=== PATIENT | female | born 1990 | race Caucasian/White ===

== ENCOUNTER 2018-05-21 16:40 | Emergency (ER) | payer OTHER ==
[~2018-05-21] VITALS: Ht 160 cm; Wt 57.6 kg
[2018-05-21] MEDS ORDERED: PRENATAL VITAM1 EAC6 PO (16:52)
== END 2018-05-21 17:00 | disposition home or self-care (01) ==
LOC: ED 16:40
DX: O99.713 Diseases of the skin and subcutaneous tissue complicating pregnancy, third trimester (principal); L29.8 Other pruritus; Z3A.31 31 weeks gestation of pregnancy

== ENCOUNTER 2018-07-18 23:11 | Inpatient (IN) | payer OTHER ==
[~2018-07-18 23:11] MED LIST: PRENATAL VITAM1 EAC6 PO
[2018-07-18] MEDS ORDERED: TYLENOL EXTRA500 MG PO (23:43)
--- NOTE | 2018-07-19 13:21 | PR ---
[facility] [address] [facility] [place] [address] Signed PP Progress Notes Datetime Report Generated by N: 07/19/2018 13:21 SUBJECTIVE: [id number] Pain: Within normal limits Nausea/Vomiting: Denies Vital Signs: [id number] Vital Signs: Reviewed; Within Normal Limits EXAM: [id number] Abdomen/Uterus: Normal Lochia: Normal Extremities: Normal IMPRESSION/PLAN/PROCEDURES: [id number] Impression: Normal progression Plan: Continue present management Procedures: None Progress Notes: Doing well, without complaint Signing Physician: Param Boswell MD Copies: ~ *Electronically Signed* 07/19/18 1321 PARAM BOSWELL MD PATIENT NAME: ADARSH MAZARIEGOS PROGRESS NOTE DATE OF : [birth year] PHYSICIAN: PARAM BOSWELL MD RPT #: [id number] REPORT IS CONFIDENTIAL AND NOT TO BE RELEASED WITHOUT AUTHORIZATION
--- NOTE | 2018-07-20 07:20 | PR ---
[facility] [address] [facility] [place], [place] [address] Signed PP Progress Notes Datetime Report Generated by CPN: 07/20/2018 07:19 SUBJECTIVE: [id number] Pain: Within normal limits Nausea/Vomiting: Denies Flatus: Yes Bowel Movement: Yes Vital Signs: [id number] Vital Signs: Reviewed; Within Normal Limits EXAM: [id number] Cardiovascular: Normal Respiratory: Normal Abdomen/Uterus: Normal Lochia: Normal Vulva/Perineum: Not Done Breasts: Not Done CVA Tenderness: Normal Extremities: Normal Incision: Not Applicable Progress: Normal Exam Comments: Fundus firm U-2 nontender IMPRESSION/PLAN/PROCEDURES: [id number] Impression: Normal progression Plan: Discharge Procedures: None Progress Notes: Pt seen and examined. Doing well. Ambulating, voiding, and tolerating full diet. Pain and lochia minimal. Reports well. No fevers/chills/other complaints. Desires d/c home today. Planning vasectomy for pp contraception Signing Physician: Angela Smith DO Copies: ~ *Electronically Signed* 07/20/18 0719 ANGELA SMITH DO PATIENT NAME: ADARSH MAZARIEGOS PROGRESS NOTE DATE OF : [birth year] PHYSICIAN: ANGELA SMITH DO RPT #: [id number] REPORT IS CONFIDENTIAL AND NOT TO BE RELEASED WITHOUT AUTHORIZATION
== END 2018-07-20 11:55 | disposition home or self-care (01) | DRG 807 ==
LOC: FBCO 23:11 → FBC 23:25
PROVIDERS: ADMIT General Practice
PROC: 10E0XZZ Delivery of Products of Conception, External Approach (ICD-10-PCS; principal; 2018-07-19)
PROC: 0HQ9XZZ Repair Perineum Skin, External Approach (ICD-10-PCS; 2018-07-19)
PROC: 0UQMXZZ Repair Vulva, External Approach (ICD-10-PCS; 2018-07-19)
PROC: 00HU33Z Insertion of Infusion Device into Spinal Canal, Percutaneous Approach (ICD-10-PCS; 2018-07-19)
PROC: 3E0R3BZ Introduction of Anesthetic Agent into Spinal Canal, Percutaneous Approach (ICD-10-PCS; 2018-07-19)
DX: O36.5930 Maternal care for other known or suspected poor fetal growth, third trimester, not applicable or unspecified (principal); Z37.0 Single live birth; Z3A.39 39 weeks gestation of pregnancy; O69.81X0 Labor and delivery complicated by cord around neck, without compression, not applicable or unspecified; O70.0 First degree perineal laceration during delivery
CPT/HCPCS: 01960; 36415; 83030; 85027; 86850; 86870; 86900; 86901; J2590; J2790; J7120

== ENCOUNTER 2019-12-28 01:52 | Day surgery (SDC) | payer OTHER ==
[~2019-12-28] VITALS: Ht 160 cm; Wt 54.4 kg
--- NOTE | ~2019-12-28 | OR ---
[address] [address] [place] DATE OF OPERATION: 12/28/2019 SURGEON: Angela Smith DO PREOPERATIVE DIAGNOSES: 1. Abnormal uterine bleeding. 2. Hemodynamic instability. POSTOPERATIVE DIAGNOSES: 1. Abnormal uterine bleeding. 2. Hemodynamic instability. 3. Omental adhesions. PROCEDURES PERFORMED: 1. Hysteroscopy. 2. Dilation and curettage. 3. Total laparoscopic hysterectomy. 4. Bilateral salpingectomy. 5. Cystoscopy. 6. Lysis of minimal omental adhesions. ASSISTANTS: 1. Ruthie Mackenzie DO. 2. Gabe Khan MD. ANESTHESIA: General. ESTIMATED BLOOD LOSS: 250 mL. SPECIMEN: 1. Endometrial curettings. 2. Uterus and cervix. 3. Bilateral fallopian tubes. FINDINGS: Normal external genitalia with normal clitoris, urethral meatus, bilateral [place]iver[place]'s, and Bartholin's. The pelvic exam under anesthesia demonstrates continued heavy bleeding with approximately 200 mL of blood and clot expressed at the beginning of the procedure. PATIENT NAME: ADARSH DE LOS SANTOS OPERATIVE REPORT DATE OF : 89 REPORT #: [id number] PHYSICIAN: ANGELA SMITH DO PCP: RANDALL LOYA REPORT IS CONFIDENTIAL AND NOT TO BE RELEASED WITHOUT AUTHORIZATION [address] [address] [place] Cervix was patulous, but otherwise normal. Hysteroscopy demonstrates thin endometrium with no obvious masses, perforations or other abnormalities. Curettage was performed and hysteroscopy repeated with continued vaginal/uterine hemorrhage noted. Decision was made at this point to proceed with hysterectomy as previously planned. On laparoscopy, omental adhesions to the anterior abdominal wall with normal uterus, fallopian tubes, and ovaries. On cystoscopy, normal bladder with bilateral ureteral jets. COMPLICATIONS: None. INDICATIONS: Ms. De Los Santos is a pleasant 29-year-old white female, well known to me, who presented to the emergency department late last night complaining of heavy vaginal bleeding. She had hysteroscopy, D and C performed in the office one week prior for abnormal uterine bleeding. No significant uterine pathology was noted on hysteroscopy and endometrium was benign proliferative. The patient was transitioned to a new oral contraceptive pill. Bleeding became very heavy and she came to the emergency department. Conservative treatment with tranexamic acid failed and the patient became hemodynamically unstable with continued heavy bleeding and tachycardia. The patient was consented for hysteroscopy, D and C. She requested proceeding directly to hysterectomy as she has completed her childbearing and is frustrated with continued bleeding. We did discuss the possibility of proceeding with hysterectomy should hysteroscopy D and C be unable to control bleeding. The patient understands and agrees. TECHNIQUE: The patient was taken to the operating room where a time-out was performed to confirm correct patient and correct procedure. General anesthesia was adequately established. The patient was prepped and draped in dorsal lithotomy position with her feet in Yellofin stirrups. ICPs were on and running and no preoperative antibiotics or heparin were indicated. Exam under anesthesia was performed that demonstrated large amount of clot in the vagina and the uterus and ongoing bleeding. She is quite tachycardic at the beginning of the case. A weighted speculum was placed in the vagina and the anterior lip of the cervix was grasped with an Allis clamp. The cervix was noted to be patulous. No dilation was required. An operative hysteroscope was placed in the cervical os and advanced under direct visualization into the uterine cavity. Normal cervix and endometrial cavity with bilateral tubal ostia identified. No intrauterine lesions or masses noted. However, significant uterine bleeding was noted on hysteroscopy. The hysteroscope was withdrawn and circumferential curettage was performed with a sharp curette yielding scant amount of endometrial curettings. Bimanual pressure was held for several minutes. Hysteroscope was then reinserted into the uterus and continued heavy vaginal bleeding was noted. Decision was made at this point to proceed with total laparoscopic hysterectomy with bilateral salpingectomy as previously discussed. The PATIENT NAME: ADARSH DE LOS SANTOS [facility] OPERATIVE REPORT DATE OF : [birth year] REPORT #: [id number] PHYSICIAN: ANGELA SMITH DO PCP: RANDALL LOYA REPORT IS CONFIDENTIAL AND NOT TO BE RELEASED WITHOUT AUTHORIZATION [address] [address] [place] patient was undraped and redraped and given 2 g of Ancef per SCIP protocol. Once the patient was prepped and draped in the dorsal lithotomy position with feet in the Yellofin stirrups, a weighted speculum was placed in the vagina and the anterior lip of the cervix was grasped with an Allis clamp. A Gyros uterine manipulator was gently placed at the fundus and green cup was placed around the cervix at the vaginal apex. A Miller catheter was inserted and attention was turned to the base of the umbilicus. Just inferior to the umbilicus was infiltrated with 0.25% Marcaine with epinephrine. The skin was incised and fascia grasped with hemostats and elevated and incised with Metzenbaum scissors. Stay sutures were placed and the peritoneum was entered bluntly. A Antonio trocar was then placed under direct visualization without difficulty and pneumoperitoneum was established. Survey of the abdomen and pelvis was performed and an omental adhesion was noted just superior to the umbilicus. A 5 mm assist port was placed in the left lower quadrant under direct visualization without complication. An 8 mm expanding port was then placed in the right lower quadrant under direct visualization without complication. Attention was turned to the omental adhesion. It was fulgurated and divided at the anterior abdominal wall with LigaSure device with excellent hemostasis. Attention was then turned to the pelvis. Normal tubes and ovaries and uterus were noted with a small amount of serosanguineous hysteroscopic fluid in the pelvis. The left fallopian tube was grasped, elevated, and dissected along the mesosalpinx and amputated the cornu. The fallopian tube was sent to pathology for further evaluation. The process was repeated on the right, where the tube was grasped, elevated and dissected along the mesosalpinx and amputated the cornu. The right uteroovarian ligament was then fulgurated and divided with excellent hemostasis. The left uteroovarian ligament was fulgurated and divided with excellent hemostasis. The left round ligament was fulgurated, divided and the anterior leaves of the broad ligament were dissected. The anterior leaf was brought down to the vaginal cuff and the bladder was pushed well below the vaginal cuff. The posterior leaf of the broad ligament was easily divided down to the uterosacral ligament and across the posterior edge of the cervical cup. The uterine vessels were identified, fulgurated and divided with excellent hemostasis. The process was repeated on the right with fulguration and dissection of the round ligament, anterior and posterior leaves of the broad ligament and uterine vessels with excellent hemostasis. Colpotomy was then performed using Sonicision device starting at 6 o'clock and proceeding along the edge of the green cup. The cervix was then amputated from the top of the vagina and the cervix and uterus were delivered through the vagina without difficulty. The vagina was then packed with a wet lap inside of a glove to maintain pneumoperitoneum. The pelvis was irrigated and found to be hemostatic. Colpotomy was then closed using V-Loc suture with an Endostitch device. Careful attention was made to incorporate the uterosacral ligaments bilaterally and vaginal epithelium with each bite. Excellent hemostasis and vaginal support were appreciated at this point of the procedure. Pneumoperitoneum was reduced and again excellent hemostasis was noted. Trocars were removed. The umbilical fascia was repaired using 0 Vicryl in a running nonlocked manner. Skin was then reapproximated PATIENT NAME: ADARSH DE LOS SANTOS [facility] OPERATIVE REPORT DATE OF : [birth year] REPORT #: [id number] PHYSICIAN: ANGELA SMITH DO PCP: RANDALL LOYA REPORT IS CONFIDENTIAL AND NOT TO BE RELEASED WITHOUT AUTHORIZATION [address] [address] [place] using 4-0 Monocryl in a subcuticular stitch with excellent hemostasis and cosmesis. Attention was then turned to cystoscopy. The Miller catheter was removed and a 70 degree cystoscope was placed in the urethral meatus and advanced under direct visualization into the bladder. Normal bladder dome and bilateral ureteral jets were noted. The bladder was drained. Miller catheter was reinserted. The patient was taken to the PACU in good and stable condition after removal of the vaginal lap. Sponge, needle, and instrument count was correct x2 at the end of the procedure. Dr. Khan and Dr. Mackenzie were present and participated in all portions of the procedure. Of note, after completion of the hysteroscopy, the patient's was called and informed of the need for hysteroscopy. Kvng De Los Santos was very supportive of this decision and appreciated the care his received. Angela Smith DO JDW/MODL /[id number] Copies: ~ PATIENT NAME: ADARSH DE LOS SANTOS OPERATIVE REPORT DATE OF : [birth year] REPORT #: [id number] PHYSICIAN: ANGELA SMITH DO PCP: RANDALL LOYA REPORT IS CONFIDENTIAL AND NOT TO BE RELEASED WITHOUT AUTHORIZATION
[~2019-12-28 01:52] MED LIST changes: +TYLENOL EXTRA500 MG PO
--- OUTSIDE RECORDS SUMMARY | 2019-12-28 01:54 | XMS ---
PreManage Notification: ADARSH MAZARIEGOS Security Manager Event Events No recent Security Events currently on file CRITERIA MET - [facility] PROVIDERS There are no care providers on record at this time. Fidel has no Care Guidelines for this patient. Antonio VISIT COUNT (12 MO.) 1 CHRISTIE Thomas TOTAL 1 NOTE: Visits indicate total known visits. ED/C VISIT TRACKING (12 MO.) 12/28/2019 01:52 CHRISTIE Hudson [place] TYPE: Emergency COMPLAINT: - POST OP PROBLEM INPATIENT VISIT TRACKING (12 MO.) No inpatient visits to display in this time frame [email or web address]
--- NOTE | 2019-12-28 10:25 | NUR ---
12/28/19 1025 Smith,Shraddha Vazquez 1015: IV IN LEFT AC RUNNING SLOW ON ARRIVAL. FLUSHED WITH NORMAL SALINE. NOW WNL.
--- NOTE | 2019-12-28 10:54 | NUR ---
WAS NOTIFIED BY ED RN BETO OF PTS' REQUEST FOR SPIRITUAL CARE. ARRIVED, PT VERY RECEPTIVE TO MY PRESENCE. SCARED AND SOMEWHAT CONCERNED ABOUT HER HEALTH. PT IS PLEASED WITH CARE AND FEELS SHE MADE THE RIGHT DECISION COMING IN. KNOWS SHE NEEDS TO WAIT FOR LABS FOR FURTHER STEPS TAKEN TODAY. EXPRESSED CONCERN FOR HER FAMILY. RECENTLY MOVED HERE FROM [place], BELIEVES GOD BROUGHT HER AND HER FAMILY HERE. HAS EXPERIENCED FAIR AMOUNT OF LOSS RECENTLY TO FRIENDS AND LOVED ONES. GAVE COMFORT AND ENCOURAGEMENT, PT REQUESTED PRAYER AND ASKED FOR RN ASSISTANCE FROM BLEEDING. HAD STAFF COME IN TO CARE FOR PT, WILL FOLLOW NEEDED
--- NOTE | 2019-12-28 11:40 | NUR ---
PT ARRIVES PER STRETCHER FROM PACU TO FBC 103. PT DROWSY. DECLINES TO ATTEMPT TO SELF TRANSFER. FULL TRANSFER TO BED BY THIS RN AND FENG RN. REPORT RECEIVED FROM FENG RN. ASSESSMENT COMPLETE. VSS. ABD SCOPE SITE x 3 WITH BANDAIDS CDI. VERY SCANT AMOUNT OF REDDISH BROWN VAG DRAINAGE NOTED ON PERIPAD. 18 GAUGE IV LEFT AC INTACT AND BENIGN. INFUSES LR AT 125/HR ORDERED. SCD'S ON AND FUNCTIONING. PT DROWSY BUT AWAKENS TO SOUND AND RESPONDS APPROPRIATELY. ORIENTED X 3. RATES LOP 5/10 BUT APPEARS TO REST COMFORTABLY WITH REG RESPS OBSERVED (SEE PACU NOTES FOR PAIN MEDICATION ADMINISTRATION PRIOR TO ARRIVING ON FBC). POC DISCUSSED WITH PT. PT AGREEABLE. PT DENIES NAUSEA CURRENTLY. ICE CHIPS PROVIDED.
--- NOTE | 2019-12-28 11:40 | NUR ---
18 GAUGE IV LEFT AC INTACT AND BENIGN. FLUSHES EASILY.
--- NOTE | 2019-12-28 12:00 | NUR ---
DR. FENG HERE ON FBC FLOOR. REPORT TO DR. FENG. DR. FENG IN TO PT BEDSIDE.
--- NOTE | 2019-12-28 12:30 | NUR ---
18 GAUGE IV LEFT AC REMAINS INTACT AND BENIGN.
--- NOTE | 2019-12-28 12:30 | NUR ---
VSS. PT AWAKENS TO SOUND. RESPONDS APPROPRIATELY TO REQUESTS. VAG DRAINAGE REMAINS SCANT TO NONE. AMAYA CATH CONTIN TO DRAIN BRIGHT YELLOW URINE. REMAINS INTACT AND BENIGN. ICE WATER PROVIDED. PT REMAINS DROWSY.
--- NOTE | 2019-12-28 12:38 | NUR ---
18 GAUGE L AC INTACT AND BENIGN. FLUSHES EASILY.
--- NOTE | 2019-12-28 13:10 | NUR ---
LR 1 LITER HUNG AT 125 ML/HR ORDERED (SEE EMAR). 18 GAUGE LEFT AC REMAINS INTACT AND BENIGN. CONTIN TO INFUSE EASILY.
--- NOTE | 2019-12-28 13:30 | NUR ---
VSS. PT SEEMS MORE AWAKE. ASKS APPROPRIATE QUESTIONS REGARDING POC. QUESTIONS ANSWERED. PT AGREEABLE AND VERBALIZES UNDERSTANDING. PT CONTINUES TO DENY NAUSEA. JELLO AND SALTINE CRACKERS PROVIDED PER PT REQUEST.
--- NOTE | 2019-12-28 13:31 | NUR ---
PT NOTED TO BE TACHY WITH ACTIVITY. PULSE FORMERLY 84 WHILE PT IS AT REST, THEN UP TO 120'S WHEN PT READJUSTS HERSELF IN THE BED. VERIFIED MANUALLY BY RADIAL PULSE. PULSE BACK TO WNL WHEN PT RESTS.
--- NOTE | 2019-12-28 14:05 | NUR ---
LAB HERE FOR SCHEDULED BLOOD DRAW.
--- NOTE | 2019-12-28 14:30 | NUR ---
VSS. PT AAO X 3. TOLERATES JELLO, SALTINE CRACKERS AND SIPS OF WATER WITHOUT NAUSEA. REQUESTS PAIN MEDICATION FOR ABD PAIN 11/17. MOTRIN 800 MG AND 2 NORCO GIVEN PO (SEE EMAR). PT AWAKE AND ALERT. CALLS MOTHER ON PHONE. AMAYA CATH EMPTIED OF 850 ML BRIGHT YELLOW URINE. PT DENIES FURTHER NEEDS.
--- NOTE | 2019-12-28 14:30 | NUR ---
IN TO CHECK ON PT IN FBC RM 103. PT IS STILL GROGGY, TRYING TO EAT JELLO AND FADES IN AND OUT. GAVE BLESSING IV ALARM WENT OFF. NOTIFIED DANAY RODRIGUEZ. WILL CONTINUE TO FOLLOW
--- NOTE | 2019-12-28 15:00 | NUR ---
AWAKE AND AKERT. CONTIN TO TOLERATE PO INTAKE WITHOUT COMPLAINTS OF NAUSEA. DENIES NEEDS AT THIS TIME.
--- NOTE | 2019-12-28 16:05 | NUR ---
DR. FENG HERE AT [facility]. REPORT TO DR. FENG REGARDING PT STATUS, VITAL SIGNS, LAB RESULTS, SENIOR SOFTWARE DEVELOPER, POC, I'S & O'S. DR. FENG VIEWS LABS. DR. FENG IN TO PT BEDSIDE.
--- NOTE | 2019-12-28 16:45 | NUR ---
PULSE NOTED. OTHER VSS. SCANT AMT OF VAGINAL DISCHARGE NOTED ON PERIPAD. PT AWAKE AND ALERT. RATES LOP DECREASED TO 4/10.
--- NOTE | 2019-12-28 18:30 | NUR ---
PT EATS SMALL AMOUNT OF SOUP AND TOAST. DENIES NEEDS AT THIS TIME. DESIRES TO REST.
--- NOTE | 2019-12-28 22:12 | NUR ---
pm assessment and POC for night discussed with pt. Pt asking for pain Rx for 09/17 incision site disc. Rx'd with 2 [place] after pt eats jello and some crackers.
--- NOTE | 2019-12-28 22:18 | NUR ---
2140- Pt medicated with scheduled Motrin 800mg, rates disc 06/17. Pt gets up to bedside with nurse and stands in place. Tolerates the activitiy well and returns to bed.
--- NOTE | 2019-12-28 23:49 | NUR ---
2348-pt resting, eyes closed. Opens eyes to nurse voice at bedside. vitals obtained. Pt closes eyes and continues to rest.
--- NOTE | 2019-12-29 01:18 | NUR ---
0010- Pt calls nurse to room with c/o bladder feeling full. Catheter manipulated and drains pale yellow urine. Pt requesting Rx for discomfort. Medicated with 2 [place] by Fernando JON
--- NOTE | 2019-12-29 01:19 | NUR ---
0100-pt calls nurse to room and states she feels her bladder is still full. Miller manipulated and drains 250cc pale yellow urine. Miller catheter Dc'd, tip intact. Pt advised to call nurse with urge to go to BR. Ruiz box given at pt request to eat.
--- NOTE | 2019-12-29 04:46 | NUR ---
0435-pt up to BR for first void. Becomes nauseous upon returning to bed. Rx with zofran 4mg IV. Pt sits up and watches t.v
--- NOTE | 2019-12-29 06:14 | NUR ---
0600- pt awake and on her phone. Scheduled motrin 800mg given. Pt rates disc 09/17 at this time. Menu given to pt and how to order breakfast explained
--- NOTE | 2019-12-29 09:00 | NUR ---
ASSESSMENT COMPLETED, ASSISTED PT UP TO BR, REG BREAKFAST ORDERED
--- NOTE | 2019-12-29 09:06 | NUR ---
SL LEFT ARM, NO S/S OF INFECTION
--- NOTE | 2019-12-29 09:13 | NUR ---
NORCO GIVEN FOR PAIN CONTROL
--- NOTE | 2019-12-29 10:55 | NUR ---
SL DC'D, CATHETER TIP INTACT, BANDAID APPLIED, DISCHARGE INSTRUCTIONS GIVNE, RX GIVEN, PT VOICED UNDERSTANDING
--- NOTE | 2019-12-29 11:18 | NUR ---
1110-PT DISCHARGED HOME VIA WC
--- NOTE | 2019-12-29 11:27 | NUR ---
PT GETTING READY FOR DC- WAITING OUTSIDE. PT FEELING MUCH BETTER, GAVE ENCOURAGEMENT, BLESSING AND ELYSIA. WILL FOLLOW NEEDED
--- NOTE | 2020-01-05 12:00 | PATH ---
[facility] [address] [place], [place] [address] Signed SPECIMEN(S): A ENDOMETRIAL CURETTINGS SPECIMEN(S): B CERVIX, UTERUS, AND TUBES SPECIMEN SOURCE: A. ENDOMETRIAL CURETTINGS B. CERVIX, UTERUS, AND TUBES CLINICAL HISTORY: 29 y/o presenting with heavy uterine bleeding status post endometrial curettage 12/20/2019, managed with repeat curettage with conversion to hysterectomy secondary to continued uterine bleeding during procedure. FINAL PATHOLOGIC DIAGNOSIS: A. Endometrium, curettage: - Weakly proliferative endometrium with reactive/regenerative stromal changes. - Myometrium with focal increased mitoses, see Comment. - Endocervical mucosa with microglandular hyperplasia. B. Uterus, cervix, and bilateral fallopian tubes, hysterectomy and bilateral salpingectomy: - Cervix: Chronic inflammation and reactive changes. - Endometrium: Weakly proliferative endometrium with areas of hemorrhage, denudation, and reactive/regenerative stromal changes. - Myometrium: Focal regenerative changes with chronic inflammation and mild cellular atypia. - Serosa: No histopathologic abnormality. - Fallopian tubes: Paratubal cysts. - Negative for malignancy. - See Comment. COMMENT: Sections of the endometrial curettage demonstrate multiple fragments of regenerative-appearing fibrous tissue and fibrinous material. A focal fragment of endometrial-lined myometrium is present with increased myometrial mitoses, however, no cellular atypia or necrosis is seen. These changes are also seen in the hysterectomy specimen at the endometrial-myometrial interface. Overall, these findings are favored to be regenerative changes secondary to the recent curettage. As part of [facility]' Quality Improvement Program, selected slides of this case were reviewed by another member of our pathology staff. NAL:cml:C2NR PATIENT NAME: ADARSH MAZARIEGOS PATHOLOGY DATE OF : 89 REPORT #: [id number] PHYSICIAN: DEWEY PATHOLOGY PCP: RANDALL LOYA REPORT IS CONFIDENTIAL AND NOT TO BE RELEASED WITHOUT AUTHORIZATION [facility] [address] [place], [place] [address] Signed MICROSCOPIC EXAMINATION: Histologic sections of all submitted blocks are examined by light microscopy. These findings, together with the gross examination, support the pathologic diagnosis. GROSS DESCRIPTION: Two specimens are received in two containers, labeled "SD." A. The specimen, labeled "SD," and designated on the requisition "EMC," is received in formalin and consists of multiple fragments of brown-fuentes to hemorrhagic tissue (2.5 x 2.3 x 0.5 cm). The specimen is submitted entirely in cassette (A1). B. The specimen, labeled "SD," and designated on the requisition "cervix, uterus, bilateral fallopian tubes," is received in formalin and consists of a uterus (79 gram, 6.5 cm superior to inferior, 5.5 cm left to right, and 3.9 cm anterior to posterior), attached cervix (2.3 cm in length x 2.9 cm in diameter) with pink-fuentes to hemorrhagic cervical mucosa and patent slit-shaped os (1.5 cm in length x 0.4 cm in width), and two detached fuentes, fimbriated fallopian tubes (5.5 cm in length x 0.9 cm in diameter and 7.0 cm in length x 0.8 cm in diameter). One fallopian tube is arbitrarily inked blue. Both fallopian tubes are serially sectioned to reveal grossly unremarkable cut surfaces. The uterine serosa is pink-fuentes and smooth. The uterus and cervix are opened to reveal a pink-fuentes to red-brown, roughened endocervix (endocervical canal: 2.5 cm in length x 2.0 cm in diameter) and an endometrial cavity (5.3 cm superior to inferior x 2.4 cm cornu to cornu) containing a hemorrhagic endometrial lining that measures up to 0.2 cm in thickness. The myometrium is pink-fuentes and trabeculated with no identifiable masses. Windows Migration Technician sections are submitted as follows: Cassette Summary: (B1) Fallopian tubes (B2) Cervix (B3) Endomyometrium AC (under the direct supervision of a pathologist) Six additional endometrium sections are submitted in two additional cassettes (B4-B5) per Dr. Blanc request. JS (under the direct supervision of a pathologist) Additional tissue is submitted in cassettes (B6-B7) per Dr. Blanc request. FB The Gross Description was prepared using a voice recognition system. The PATIENT NAME: ADARSH MAZARIEGOS PATHOLOGY DATE OF : [birth year] REPORT #: [id number] PHYSICIAN: DEWEY FARAH PCP: RANDALL LOYA REPORT IS CONFIDENTIAL AND NOT TO BE RELEASED WITHOUT AUTHORIZATION [facility] [address] [facility] [place], [place] [address] Signed report was reviewed for accuracy; however, sound-alike word errors, addition and/or deletions may occur. If there is any question about this report, please contact Client Services. PERFORMING LABORATORY: The technical component was performed by [facility], [address] [place] [id number] (Traffic Engineer: Gail Palm MD; CLIA# [id number]).Professional [facility], [address] [place] [address] (CLIA# [id number]). Diagnostician: Gavi Blanc MD Pathologist Electronically Signed 01/05/2020 Copies: ~ PATIENT NAME: ADARSH MAZARIEGOS PATHOLOGY DATE OF : [birth year] REPORT #: [id number] PHYSICIAN: DEWEY FARAH PCP: RANDALL LOYA REPORT IS CONFIDENTIAL AND NOT TO BE RELEASED WITHOUT AUTHORIZATION
== END 2019-12-29 11:10 | disposition home or self-care (01) ==
LOC: ED 01:52 → FBC 07:18 → DS 07:18
PROVIDERS: Obstetrics & Gynecology; ATTEND General Practice
PROC: 0UDB8ZZ Extraction of Endometrium, Via Natural or Artificial Opening Endoscopic (ICD-10-PCS; principal; 2019-12-28 06:45)
PROC: 0UT94ZZ Resection of Uterus, Percutaneous Endoscopic Approach (ICD-10-PCS; 2019-12-28 06:45)
PROC: 0UT74ZZ Resection of Bilateral Fallopian Tubes, Percutaneous Endoscopic Approach (ICD-10-PCS; 2019-12-28 06:45)
DX: N85.00 Endometrial hyperplasia, unspecified (principal); N72 Inflammatory disease of cervix uteri; N83.8 Other noninflammatory disorders of ovary, fallopian tube and broad ligament; K66.0 Peritoneal adhesions (postprocedural) (postinfection); D62 Acute posthemorrhagic anemia; J45.909 Unspecified asthma, uncomplicated; Z87.891 Personal history of nicotine dependence; Z79.899 Other long term (current) drug therapy; Z20.828 Contact with and (suspected) exposure to other viral communicable diseases
CPT/HCPCS: 00840; 36415; 76830; 76856; 80053; 84703; 85025; 85027; 85384; 85610; 85730; 86850; 86900; 86901; 99285-25; C9803; J0330; J0690; J1100; J1650; J2250; J2405; J2704; J2765; J3010; J7030; J7121; U0003